=== PATIENT | male | born 1950 | race Caucasian/White ===

== ENCOUNTER 2018-09-24 07:04 | Outpatient (CLI) | payer MEDICARE, BC ==
[~2018-09-24] VITALS: Ht 175.3 cm; Wt 90.0 kg
[~2018-09-24 07:04] MED LIST: LIPITOR20 MG PO; PROTONIX20 MG PO; [UNRECOGNIZED DRUG - OTHER]
[2018-09-24 07:50] LABS: MEAN CELL VOLUME 108 fl (80.0-100.0); MEAN CORPUSCULAR HGB CONC 33 g/dl (33.0-37.0); MEAN PLATELET VOLUME 10.2 fl (7.4-10.4); PLATELET COUNT 459 K/mm3 (130-400); RED BLOOD COUNT 2.62 M/mm3 (4.20-5.60); REDCELL DISTRIBUTION WIDTH-CV 16.8 % (11.5-14.5)
[2018-09-24 07:51] LABS: HEMATOCRIT 28.2 % (42.0-52.0); HEMOGLOBIN 9.4 g/dl (13.5-18.0); MEAN CORPUSCULAR HEMOGLOBIN 36 pg (27.0-31.0)
[2018-09-24] MEDS ORDERED: ASPIRIN E.C. 8181 MG PO (07:53)
[2018-09-24] MEDS ORDERED: ZYRTEC 10MG10 MG PO (07:54)
[2018-09-24] MEDS ORDERED: PROSCAR 5MG5 MG PO (07:54)
[2018-09-24] MEDS ORDERED: LASIX 20MG TABL20 MG PO (07:55)
[2018-09-24] MEDS ORDERED: SINGULAIR 110 MG/TAB PO (07:56)
[2018-09-24] MEDS ORDERED: ZOCOR 40MG40 MG PO (07:57)
[2018-09-24] MEDS ORDERED: FLONASE NASAL S16 GM NS (07:57)
[2018-09-24 08:00] VITALS: BP 129/79; PULSE 71; TEMP 97.2
[2018-09-24 08:03] LABS: BAND 8 % (0-10); BASOPHIL 1 % (0-2); LYMPHOCYTE 15 % (20.0-51.0); MYELOCYTE 2 % (0-0); NEUTROPHILS 68 % (42.0-75.2); PLATELET ESTIMATE INCREASED (NORMAL)
[2018-09-24 08:04] LABS: ANISOCYTOSIS 1+
[2018-09-24 08:05] LABS: HYPOCHROMIA 1+; OVALOCYTES 1+; POLYCHROMASIA 1+
[2018-09-24 08:07] LABS: IRON,SERUM 206 ug/dL (35-150)
[2018-09-24 08:16] LABS: TOTAL IRON BINDING CAPACITY 221 ug/dL (261-462)
[2018-09-24 08:45] LABS: FERRITIN 342 ng/mL (18-464)
--- NOTE | 2018-09-24 08:55 | NUR ---
Pt to OR per cart with transporter
[2018-09-24 09:55] VITALS: BP 145/89; PULSE 66
--- NOTE | 2018-09-24 09:55 | NUR ---
Pt returned to [facility] per cart s/p BMBx. Pt resting well, at bedside.
[2018-09-24 10:10] VITALS: BP 138/89; PULSE 62; TEMP 97.7
[2018-09-24 10:25] VITALS: BP 138/76; PULSE 61
--- NOTE | 2018-09-24 10:25 | NUR ---
Pt has ambulated, voided and dania PO intake s n/v. PIV removed with catheter intact.
--- NOTE | 2018-09-24 10:45 | NUR ---
Pt discharged per w/c by nurse with .
== END 2018-09-24 12:06 | disposition home or self-care (01) ==
LOC: SDCO 07:04
PROVIDERS: Internal Medicine
DX: D53.9 Nutritional anemia, unspecified (principal); D47.3 Essential (hemorrhagic) thrombocythemia; D75.89 Other specified diseases of blood and blood-forming organs; K21.9 Gastro-esophageal reflux disease without esophagitis; Z87.891 Personal history of nicotine dependence
CPT/HCPCS: J2704; J3010

== ENCOUNTER → 2018-10-31 | Outpatient (CLI) | payer MEDICARE, BC ==
[~2018-10-31] MED LIST changes: +ASPIRIN E.C. 8181 MG PO; +FLONASE NASAL S16 GM NS; +LASIX 20MG TABL20 MG PO; +PROSCAR 5MG5 MG PO; +SINGULAIR 110 MG/TAB PO; +ZOCOR 40MG40 MG PO; +ZYRTEC 10MG10 MG PO
== END ==
LOC: COL.RAD 08:13
DX: D53.9 Nutritional anemia, unspecified (principal); D61.818 Other pancytopenia; Z86.59 Personal history of other mental and behavioral disorders

== ENCOUNTER 2019-10-30 13:11 | Outpatient (RCR) | payer MEDICARE, BC ==
[2019-10-30 13:40] VITALS: BP 147/71; PULSE 80; TEMP 98
[2019-10-30 14:05] LABS: HEMOGLOBIN 10.8 g/dl (13.5-18.0); MEAN CELL VOLUME 102 fl (80.0-100.0); MEAN CORPUSCULAR HEMOGLOBIN 34 pg (27.0-31.0); MEAN CORPUSCULAR HGB CONC 33 g/dl (33.0-37.0); MEAN PLATELET VOLUME 10.7 fl (7.4-10.4); PLATELET COUNT 459 K/mm3 (130-400); RED BLOOD COUNT 3.21 M/mm3 (4.20-5.60); REDCELL DISTRIBUTION WIDTH-CV 19.7 % (11.5-14.5)
[2019-10-30 14:06] LABS: HEMATOCRIT 32.6 % (42.0-52.0)
[2019-10-30 14:31] LABS: BAND 11 % (0-10); LYMPHOCYTE 23 % (20.0-51.0); NEUTROPHILS 57 % (42.0-75.2)
[2019-10-30 14:32] LABS: ANISOCYTOSIS 2+; POIKILOCYTOSIS 2+
[2019-10-30 14:33] LABS: OVALOCYTES 1+; STOMATOCYTE 1+
--- NOTE | 2019-11-13 10:00 | NUR ---
Pt arrived on for scheduled aranesp inject from Dr Olvera office.Karolyn,Pharmacy called and per karolyn,certain criteria needs met per Guidlines.Per Karolyn he spoke to Brooklynn,Nurse at office.Patient agreed to wait for injection until clarification received from office.This nurse spoke to Brooklynn at office in regards to waiting on injection. Fax received from office on ,see chart.Per Office note patient will get Procrit at office instead of aranesp injection.No further appointment made at this time.
== END 2019-11-13 10:04 | disposition home or self-care (01) ==
LOC: EUO 13:11
PROVIDERS: Internal Medicine
DX: D46.1 Refractory anemia with ring sideroblasts (principal)
CPT/HCPCS: J0881

== ENCOUNTER → 2021-11-02 | Outpatient (CLI) | payer MEDICARE, BC | LOC: COL.RAD 10:40 | DX: N43.0 Encysted hydrocele (principal); N44.2 Benign cyst of testis ==